=== PATIENT | female | born 1970 | race African-American/Black ===

== ENCOUNTER 2019-03-25 12:52 | Emergency (ER) | payer MEDICARE, MEDICAID ==
[~2019-03-25] VITALS: Ht 162.6 cm; Wt 59.0 kg
[2019-03-25 12:56] VITALS: BP 102/77
== END 2019-03-25 21:38 | disposition left against medical advice (07) ==
LOC: ER 12:58
DX: R10.9 Unspecified abdominal pain (principal); Z53.21 Procedure and treatment not carried out due to patient leaving prior to being seen by health care provider

== ENCOUNTER 2023-07-04 00:40 | Emergency (ER) | payer MEDICARE, MEDICAID ==
[~2023-07-04] VITALS: Ht 157.5 cm; Wt 55.5 kg
[2023-07-04 00:54] VITALS: O2SAT 100
[2023-07-04 02:00] LABS: BASOPHILS % 0.7 % (0.0-2.0); CHLORIDE 104 mEq/L (98-107); EOSINOPHILS % 2.3 % (0.0-5.0); HEMATOCRIT. 40.7 % (36.0-48.0); HEMOGLOBIN. 13.9 g/dL (12.0-16.0); INDEX HEMOLYSI 1 (1-3); INDEX ICTERIC 1 (1-4); INDEX LIPEMIC 1 (1-3); LYMPHOCYTES % 36.2 % (20.0-50.0); MEAN CORPUSCULAR HEMOGLOBIN 33.8 pg (28.0-32.0); MEAN CORPUSCULAR HGB CONC 34.2 g/dL (31.0-37.0); MEAN CORPUSCULAR VOLUME 98.9 fL (81.0-99.0); MEAN PLATELET VOLUME 8.1 fl (7.4-10.4); MONOCYTES % 5.6 % (2.0-8.0); NEUTROPHILS % 55.2 % (40.0-76.0); PLATELET 256 x1000/uL (130-400); POTASSIUM 4.1 mEq/L (3.5-5.1); RED BLOOD CELL COUNT 4.12 mill/uL (4.2-5.4); RED CELL DISTRIBUTION WIDTH 14.5 % (11.6-14.6); SODIUM 136 mEq/L (136-145); WHITE BLOOD COUNT 10.3 x1000/uL (4.5-11.0)
[2023-07-04] MEDS ORDERED: MORPHINE SULFATE 4 MG/ML CPJ (NOT FOR IM USE) IV STA (02:03)
[2023-07-04] MEDS ORDERED: ONDANSETRON HCL 4MG/2ML INJ IV STA (02:03)
[2023-07-04 02:08] LABS: ALANINE AMINOTRANSFERASE 53 IU/L (13-61); ALBUMIN 4.4 g/dL (3.4-5.0); ASPARTATE AMINOTRANSFERASE 37 IU/L (15-37); BILIRUBIN TOTAL 1.1 mg/dL (0.1-1.0); CALCIUM 9.3 mg/dL (8.5-10.1); CARBON DIOXIDE 25 mEq/L (21-32); CREATININE 1.2 mg/dL (0.6-1.3); GLUCOSE 176 mg/dL (70-105); PROTEIN TOTAL 8.4 g/dL (6.0-8.3); UREA NITROGEN BLOOD 35 mg/dL (7-21)
[2023-07-04] MEDS ORDERED: SODIUM CHLORIDE 0.9% 1,000 ML IV ONE (02:15)
[2023-07-04 02:50] LABS: LACTIC ACID 2.2 mmol/L (0.4-2.0)
[2023-07-04] MEDS ORDERED: KETOROLAC 30MG/ML VIAL IV ONE (04:15)
[2023-07-04 04:23] LABS: CLARITY URINE CLEAR (CLEAR); COLOR URINE YELLOW (YELLOW); GLUCOSE URINE NEGATIVE (NEGATIVE); KETONES URINE NEGATIVE (NEGATIVE); LEUKOCYTE ESTERASE URINE NEGATIVE (NEGATIVE); NITRITE URINE NEGATIVE (NEGATIVE); OCCULT BLOOD URINE NEGATIVE (NEGATIVE); PROTEIN URINE 1+ (NEGATIVE); SPECIFIC GRAVITY URINE 1.011 (1.005-1.030); UROBILINOGEN URINE 0.2 E.U./dL (0.2-1.0)
[2023-07-04 04:59] LABS: RBC URINE 0-2 /hpf (0-2)
[2023-07-04 05:00] LABS: BACTERIA URINE NONE SEEN; SQUAMOUS EPITHELIAL CELL URINE FEW /lpf (RARE/1+); WBC URINE 0-2 /hpf (0-2)
[2023-07-04] MEDS ORDERED: MORPHINE SULFATE 2 MG/ML CPJ (NOT FOR IM USE) IV NR (10:30)
[2023-07-04 12:14] VITALS: BP 116/78; PULSE 73; RESP 13; TEMP 98
== END 2023-07-04 16:58 | disposition left against medical advice (07) ==
LOC: ER 00:40 → EDBEDREQ 05:30 → EDBEDREQTM 05:30 → CANBEDREQ 16:54 → ER 16:58
DX: R10.816 Epigastric abdominal tenderness (principal); I50.9 Heart failure, unspecified; Z98.890 Other specified postprocedural states
CPT/HCPCS: 99285; 74176; 96374; 71045; 96375; 96361; 80053; 81003; 83605; 83690; 85025; 36415; 96376; J1885; J2405; J2270 ×2; J7030